=== PATIENT | male | born 1965 | race African-American/Black ===

== ENCOUNTER 2021-11-27 06:43 | Observation (INO) | payer OTHER, SELFPAY ==
[2021-11-27] VITALS (38 sets, daily range): BP systolic 119–167; BP diastolic 78–101; PULSE 52–107; RESP 11–22; TEMP 36.1–36.9; O2SAT 94–100; BMI 29.5
--- NOTE | ~2021-11-27 | XR_ITS ---
EXAMINATION: XR chest 1V portable DATE: 11/27/2021 07:52 INDICATION: Chest pain TECHNIQUE: frontal view of the chest was obtained. COMPARISON: None FINDINGS: The lungs are clear with no focal airspace opacities, pulmonary edema, pleural effusion or pneumothor ax. The cardiomediastinal silhouette is normal. Mild thoracic dextrocurvature. IMPRESSION: 1. No acute cardiopulmonary disease. Reviewed, dictated and finalized at location A.
--- NOTE | ~2021-11-27 | CT_ITS ---
EXAMINATION: CTA chest PE abdomen pel DATE: 11/27/2021 08:32 INDICATION: Chest pain, left side. Shortness of breath. TECHNIQUE: Computed tomography angiography (CTA) of the chest was performed with 100 mL Omnipaque-350 intravenous contrast timed to evaluate the pulmonary arteries. Coronal maximum intensity projection 3D-reconstructions were created by the technologist. Automated exposure control and iterative reconst ruction technique were employed. Exam dose: 1146.21 mGy-cm total exam DLP. COMPARISON: 11/27/2021 portable AP chest FINDINGS: There is diagnostic contrast enhancement of the pulmonary arteries and no evidence of pulmo nary embolism. The ascending aorta measures up to 3.9 cm diameter, the mid aortic arch and descending thoracic aorta approximately 3 cm diameter . No pulmonary infiltrate or consolidation or pulmonary mass lesion. Borderline heart size. No pericardial or pleural effusion. Included skeletal structures are unremarkable. IMPRESSION: No evidence of pulmonary embolus Borderline thoracic aortic diameter Borderline heart size Reviewed, dictated and finalized at Location [facility]. Reviewed, dictated and finalized at location B.
--- NOTE | 2021-11-27 06:45 | ECG_ITS ---
Measurements Intervals [place] Rate: 76 P: 23 [place]: 119 QRS: 36 QRSD: 86 T: -59 QT: 331 QTc: 374 Interpretive Statements SINUS RHYTHM FREQUENT ATRIAL PREMATURE COMPLEXES BORDERLINE T WAVE ABNORMALITY- INF/LAT LEADS BASELINE ARTIFACT- I, II, III, AVF, V4-V6 ABNORMAL ECG Electronically Signed On 11-27-2021 7:01:46 CDT by Mark Carlson D.O.
[2021-11-27] MEDS: ASPIRIN 81 MG CHEWABLE TABLET 324 MG PO (06:53)
[2021-11-27] MEDS: NITROGLYCERIN SL 0.4 MG TABLET SUBLINGUAL ×2 (06:55→07:00)
--- NOTE | 2021-11-27 06:55 | PC.NURSE ---
0655: 0.4 SL nitro given. 02/08 pain
[2021-11-27 06:56] LABS: Glucose Point of Care 292 mg/dl (65-105)
--- NOTE | 2021-11-27 06:58 | ECG_ITS ---
Measurements Intervals [place] Rate: 85 P: 26 [place]: 129 QRS: 31 QRSD: 84 T: -46 QT: 337 QTc: 402 Interpretive Statements SINUS RHYTHM LEFT VENTRICULAR HYPERTROPHY AND ST-T CHANGE ST-T WAVE ABNORMALITY IN INFERIOR LEADS- CONSIDER ISCHEMIA BASELINE ARTIFACT- III, AVF ABNORMAL ECG Electronically Signed On 11-27-2021 8:04:16 CDT by Mark Carlson D.O.
--- NOTE | 2021-11-27 07:04 | PC.NURSE ---
0700: 0.4 SL nitro given 10/10 pain
[2021-11-27 07:06] LABS: Basophils Percent Auto 0.2 % (0.2-1.2); Eosinophils Absolute Auto 0.2 K/mm3 (0-0.3); Eosinophils Percent Auto 4.1 % (0-4.4); Hematocrit 43.2 % (42.0-52.0); Immature Granulocyte Absolute 0.01 K/mm3 (0.00-0.031); Immature Granulocyte Percent A 0.2 % (0-0.5); Lymphocytes Percent Auto 25.8 % (18.3-44.2); Mean Corpuscular HGB Conc 32.4 g/dl (32-36); Mean Corpuscular Hemoglobin 27.6 pg (26-34); Mean Corpuscular Volume 85.2 fl (80-100); Mean Platelet Volume 11.5 fl (7.4-10.4); Monocytes Absolute Auto 0.6 K/mm3 (0.1-0.6); Monocytes Percent Auto 11.8 % (2.6-8.5); Neutrophils Absolute Auto 2.7 K/mm3 (1.3-6.7); Neutrophils Percent Auto 57.9 % (45.5-73.1); Platelet Count Result 165 k/mm3 (150-375); Red Blood Count 5.07 M/mm3 (4.6-6.20); Red Cell Distribution Width 14.4 % (11.5-14.5); White Blood Count 4.7 K/mm3 (4.5-10.0)
[2021-11-27] MEDS: MORPHINE SULFATE (*CRX) 4 MG/ML INJ IV PUSH (07:11)
--- NOTE | 2021-11-27 07:14 | ED.CHESTPAIN ---
HPI - Chest Pain General Chief Complaint: Chest Pain Stated Complaint: chest pain Time Seen by Provider: 11/27/21 07:01 Source: RN notes reviewed History of Present Illness HPI narrative: Patient presents emergency department from work for chest pain. Patient states symptoms began prior to arrival states he was seen his desk at work when he began to get left-sided chest pain pain is described as a heaviness with radiation into the left arm. He denies any fevers or chills does note some mild shortness of breath with symptoms as well as some upper abdominal pain denies any nausea vomiting or diarrhea. Patient states he does have a history of cardiomyopathy as well as hypertension high cholesterol diabetes. No previous history of coronary artery disease Related Data Home Medications Medication Instructions Recorded Confirmed acetaminophen 300 mg-codeine 30 mg tablet 11/27/21 tablet clobetasol 0.05 % topical ointment topical 11/27/21 diphenhydramine HCl 25 mg capsule mg 11/27/21 (Diphenhist) famotidine 40 mg tablet mg 11/27/21 gabapentin 400 mg capsule mg 11/27/21 hydrocodone 7.5 mg-acetaminophen tablet 11/27/21 325 mg tablet hydroxyzine HCl 25 mg tablet mg 11/27/21 insulin glargine 100 unit/mL (3 unit subcut 11/27/21 mL) subcutaneous pen (Lantus Solostar U-100 Insulin) insulin lispro 100 unit/mL 1 sliding scale dose subcut 11/27/21 subcutaneous cartridge USEASDIRECTD ketoconazole 2 % topical cream applic topical 11/27/21 lisinopril 20 mg tablet mg 11/27/21 loratadine 10 mg tablet mg 11/27/21 metformin 500 mg tablet mg 11/27/21 pen needle, diabetic 32 gauge x 11/27/21 (BD Katarzyna 2nd Gen Pen Needle) terbinafine HCl 250 mg tablet mg 11/27/21 Allergies Allergy/AdvReac Type Severity Reaction Status Date / Time No Known Allergies Allergy Verified 11/27/21 07:03 Review of Systems Review of Systems: Gen.: Denies fevers or chills ENT: Denies congestion Respiratory: D reports shortness of breath CV: Reports chest pain GI: Reports upper abdominal pain denies nausea vomiting diarrhea Musculoskeletal: Denies back pain or muscle pain Neuro: Denies numbness, tingling, weakness or focal weakness Skin: Denies rash Except as documented, all other systems reviewed and negative [facility] Past Medical History Medical History (Updated 11/27/21 @ 13:56 by Joel Cain DO) Diabetes mellitus Hypercholesterolemia Hypertension Social History Social History (Updated 11/27/21 @ 07:16 by Joel Cain DO) Smoking status: Never smoker Exam Narrative: APPEARANCE: No acute distress, nontoxic, resting in bed EYES: EOMI HEENT: Normocephalic, atraumatic, OMM RESPIRATORY: No respiratory distress Clear to auscultation bilaterally with no rhonchi wheezing or rales. CARDIOVASCULAR: Regular rate and rhythm without murmurs rubs or gallops. ABDOMINAL: Soft, nondistended tender palpation epigastric and upper quadrant no tenderness left upper quadrant, right lower quadrant left lower lower quadrant no rebound or guarding MUSCULOSKELETAl: Moves all extremities. No clubbing, cyanosis or edema. NEURO: Awake and alert. Following commands, speech normal, no focal deficits SKIN:: Warm, dry. No rashes lesions or abrasions PSYCHIATRIC: Normal affect/mood, Course Course Emergency Course: Patient still large amount of pain pain in the left chest as well as left upper abdomen on palpation pain unchanged with nitroglycerin morphine and GI cocktail 0905: Discussed with Dr. Lyon with EKG sent to Dr. Lyon this time he agrees no acute signs of ST elevation and does not feel patient needs emergent Contracting Specialist Patient states pain is improved with Dilaudid Discussed with Dr. Robin presentation work-up agrees with admission Discussed with SARIAH Yang for Dr. Lyon agrees with consult Discussed with patient and family results of workup and diagnosis. Discussed need for admission. Patient and family
[2021-11-27 07:18] LABS: INR 1.1; Prothrombin Time 13.7 Seconds (11.1-14.7)
[2021-11-27 07:19] LABS: Partial Thromboplastin Time 28.3 SECONDS (22.3-36.8)
--- NOTE | 2021-11-27 07:28 | ECG_ITS ---
Measurements Intervals [place] Rate: 71 P: 27 [place]: 131 QRS: 30 QRSD: 79 T: -52 QT: 349 QTc: 380 Interpretive Statements SINUS RHYTHM ATRIAL PREMATURE COMPLEXES LEFT VENTRICULAR HYPERTROPHY AND ST-T CHANGE ST-T WAVE ABNORMALITY IN INFERIOR LEADS- CONSIDER ISCHEMIA ABNORMAL ECG Electronically Signed On 11-27-2021 8:04:48 CDT by Mark Carlson D.O.
[2021-11-27 07:29] LABS: Troponin I < 0.012 ng/mL (0.000-0.034)
[2021-11-27 07:59] LABS: Albumin Level 4.4 g/dL (3.5-5.1); Alkaline Phosphatase 73 U/L (38-126); Anion Gap 11 mmol/L (8-16); Aspartate Amino Transferase 34 U/L (17-59); Bilirubin,Total 0.5 mg/dL (0.2-1.3); Blood Urea Nitrogen 12 mg/dL (9-20); Calcium 9.3 mg/dL (8.4-10.2); Carbon Dioxide 21 mmol/L (22-30); Chloride 105 mmol/L (98-107); Estimated CRCL calculation 79 ml/min; Estimated Glomerular Filt Rate > 60; Glucose 243 mg/dL (65-110); Lipase 87 U/L (23-300); Potassium 3.8 mmol/L (3.4-5.0); Sodium 137 mmol/L (137-145)
[2021-11-27 08:30] LABS: Alanine Aminotransferase 45 U/L (6-50)
--- NOTE | 2021-11-27 08:48 | ECG_ITS ---
Measurements Intervals [place] Rate: 67 P: 43 [place]: 144 QRS: 30 QRSD: 77 T: -29 QT: 343 QTc: 363 Interpretive Statements SINUS RHYTHM ST ELEVATION IN ANTERIOR LEADS, PROBABLY EARLY REPOLARIZATION BORDERLINE ST-T WAVE ABNORMALITY- INFERIOR LEADS BASELINE ARTIFACT- I, III, AVL BORDERLINE ECG Electronically Signed On 11-27-2021 9:44:51 CDT by Mark Carlson D.O.
[2021-11-27] MEDS: HYDROmorphone HCL INJ (*CRX) 1 MG/ML SYR IV PUSH (09:07)
--- NOTE | 2021-11-27 09:08 | PC.NURSE ---
Patient attempting to climb out of bed due to chest pain. This RN and Dr. Cain able to redirect patient back into bed. IV Dilaudid ordered for patient.
[2021-11-27 09:55] LABS: Lactic Acid Reflex 2.5 mmol/L (0.7-2.0)
[2021-11-27 10:08] LABS: Troponin I 0.013 ng/mL (0.000-0.034)
[2021-11-27] MEDS: SODIUM CHLORIDE 0.9% IV 1,000 ML 999 ML IV CONT (10:23)
[2021-11-27 10:59] LABS: SARS-CoV-2 RNA PCR Negative
[2021-11-27] MEDS: HYDROmorphone HCL INJ (*CRX) 1 MG/ML SYR 0.5 MG IV PUSH (12:26)
[2021-11-27 12:31] LABS: Reflex Lactic Acid Yes or No Add Lactic
[2021-11-27] MEDS: PANTOPRAZOLE SODIUM IV 40 MG VIAL IV PUSH (12:36)
[2021-11-27] MEDS: SODIUM CHLORIDE 0.9% IV 1,000 ML 125 ML IV CONT ×2 (12:36→20:46)
[2021-11-27 13:17] LABS: Troponin I < 0.012 ng/mL (0.000-0.034)
[2021-11-27] MEDS: KETOROLAC 30 MG/ML VIAL (*BKC) IV PUSH (13:34)
[2021-11-27 13:35] LABS: Lactic Acid 1.1 mmol/L (0.7-2.0)
--- NOTE | 2021-11-27 13:37 | PM.CNCAR ---
Assessment and Plan Assessment and plan (1) Chest pain at rest: Code(s): R07.9 - Chest pain, unspecified Status: Acute Plan This is a 56-year-old gentleman presenting to the emergency room earlier today with some chest pain that seems to have a pleuritic component to it as far as I can not tell from his history. He does not report any prior history of cardiac problems. He has not been feeling well since infection of a carpal tunnel surgical site last June. Following the this event he was also found to be diabetic. The patient and his significant other seem to have the concept that this incident caused him to become diabetic which does not seem to be the case in my opinion. In any event there is no abducted evidence of an acute coronary syndrome he has some very mild nonspecific ECG changes but nothing that looks like a current of injury and he has had 2 sets of negative troponins as of now. I did discuss the situation with the ER staff were going to proceed give him a dose of Toradol at this time. Will follow with you while he is in the hospital but this time it is my judgment that he does not require emergent coronary angiogram which was the reason for asking me to come see him in the emergency room Kevyn Lyon MD [facility] History of Present Illness History of Present Illness Consult date/time: 11/27/21 13:37 Consult reason: chest pain Reason For Visit: L sided chest pain/L abd pain Narrative: This is a 56-year-old man that I am seeing in the emergency room at the request of the ED staff because of chest pain. He is known to me prior to this encounter. The patient is not known to have any cardiac problems prior to this from what he is telling me. He indicates that he came to the emergency room murmur very early this morning with some chest pain that awakened him from sleep. He describes a initially sharp then sometimes pressure-like pain that occurs in the left precordium sometimes in the center substernal region. The discomfort waxes and wanes but has been constant since its onset about 7:00 a.m. this morning. He is not having any associated nausea vomiting or diaphoresis there is no radiation of pain into the neck interscapular region or any other location. He was concerned about his health so he came to the emergency room for evaluation. In the emergency department he has had 4 electrocardiograms done since arrival. This tracing shows sinus rhythm with some nonspecific T-wave abnormalities. He has had 2 troponin levels sampled since he has been here which are negative. CT of the chest has not shown any evidence of pulmonary embolism or of aortic pathology. The patient states that he has been feeling poorly since complications following a carpal tunnel operation which occurred in the early part of your at a [facility]. The patient and his significant other who is in the room indicate that there were infectious complications following this and they thought there was some infectious problem that were related to his heart. It specifically do not remember the term endocarditis when I mention this possibility. I did look in the [facility] electronic records in my chart and there is nothing in the discharge records from [facility] at indicate any concern regarding his cardiac status. He apparently had a carpal tunnel operation in the had a wound infection and was hospitalized for initiation of antibiotics and then was on antibiotics for a number of weeks after that. When he is in his usual state of health he is not reporting any exertional chest pain symptoms he does not experience orthopnea or PND. He states that he was having some skin lesions with some blistering on the hands in his left foot that he has seen several physicians about and have not had any specific diagnosis made. When I came in the room to see the patient he was sleeping in bed upon awakening he still states he is having moderate chest pain that get
--- NOTE | 2021-11-27 14:15 | PM.IMHP ---
H&P: HPI History of Present Illness Date/Time: 11/27/21 14:15 <Ashley Puente PA-C - Last Filed: 11/27/21 23:44> Chief Complaint: Chest pain. <Ashley Puente PA-C - Last Filed: 11/27/21 23:44> Narrative: This is a pleasant 56-year-old male with insulin-dependent diabetes, peripheral neuropathy, and hypertension who presented to the emergency department via private vehicle for evaluation of chest pain. He got up at 04:30 as per usual and took his fasting glucose which was reportedly 255. Not long thereafter he started to feel as though his glucose was dropping and so he ate a slice of bread and when he recheck the glucose he was actually higher than what it was before at about 360. Around the same time he developed a severe squeezing pain in the left anterior chest associated with feelings of racing heart. The pain was so severe that it took his breath away and he also reports feeling nauseated and diaphoretic with the onset of those symptoms. His symptoms have continued and thus he came in today for evaluation. He reports constant pain since the outset however it waxes and wanes in intensity. He denies aggravating factors and while he has some mild tenderness to palpation over the left chest wall he states that this pain is completely different than the pain he has been experiencing this morning. It is perhaps a little worse with deep inspiration but not significantly so. Aspirin, nitroglycerin, morphine, Toradol, and GI cocktail did not help much and the best relief he got was from dilaudid. Thus far he has had 2 negative troponins and his EKG was reviewed by Dr. Lyon who does not think there is any evidence of acute injury. Currently the patient is resting comfortably but he continues to have intermittent pain. He denies syncope, presyncope, current palpitations, orthopnea, paroxysmal nocturnal dyspnea, and lower extremity edema though he has had some mild swelling of his legs within the last couple of weeks. He also denies epigastric and abdominal pain, bloating, belching, and indigestion symptoms. <Ashley Puente PA-C - Last Filed: 11/27/21 23:44> Review of Systems Review of Systems: Twelve systems were reviewed. He was recently diagnosed with diabetes and he has neuropathy, mainly in his left foot and hands. He was hospitalized at [facility] in June following carpal tunnel surgery in which he developed a pretty significant infection. He has changed his diet and feels as though he is getting his glucose under control and he was apprised by today's numbers. He has no known history of coronary artery disease but thinks he may have been diagnosed with a cardiomyopathy during his stay at [facility]. He denies concerns for sleep apnea. No melena or hematochezia. No history of venous thromboembolism. He has not done any strenuous lifting or new activities in which he could injure himself. Except as documented, all other systems were reviewed and are negative. <Ashley Puente PA-C - Last Filed: 11/27/21 23:44> [facility] Past Medical History Medical History: Medical History (Updated 11/27/21 @ 14:08 by sAhley Puente PA-C) Dyslipidemia Hypertension Insulin dependent diabetes mellitus <Ashley Puente PA-C - Last Filed: 11/27/21 23:44> Surgical History Surgical History: Surgical History (Updated 11/27/21 @ 14:06 by Ashley Puente PA-C) History of carpal tunnel release <Ashley Puente PA-C - Last Filed: 11/27/21 23:44> Family History Family History: Family History Mother Lymphoma Father Acute myocardial infarction Sibling Diabetes mellitus <Ashley Puente PA-C - Last Filed: 11/27/21 23:44> Social History Social History: Social History (Updated 11/27/21 @ 23:39 by Ashley Puente PA-C) Social History: Surrogate medical decision maker: miranda Murphy
--- NOTE | 2021-11-27 14:32 | PC.NURSE ---
Admit to 207 from ED pt is A&Ox4 C/O squeezung in chest with syncopal episode x2 today. NS at 125ml/hr, skin is warm and dry. 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
[2021-11-27 16:55] LABS: Glucose Point of Care 114 mg/dl (65-105)
[2021-11-27 20:00] LABS: Glucose Point of Care 158 mg/dl (65-105)
[2021-11-27] MEDS: INSULIN GLARGINE (*BKC) 100 UNITS/ML 20 UNITS SUB-Q (20:57)
[2021-11-28] VITALS (9 sets, daily range): BP systolic 127–178; BP diastolic 69–99; PULSE 57–86; RESP 16–24; TEMP 36.3–36.7; O2SAT 96–100
--- NOTE | 2021-11-28 | ECHO_ITS ---
Patient Info Name: Renato Dean Age: 56 years : 1965 Gender: Male Ht: 67 in Wt: 190 lbs BSA: 2.04 m2 HR: 82 bpm BP: 178 / 82 mmHg Heart Rhythm: Sinus Rhythm Technical Quality: Good Exam Date: 11/28/2021 12:55 PM Exam Location: [facility] Pulmonary Exam Room: [facility] Patient Status: Inpatient Admit Date: 11/27/2021 Staff Ordering Physician: Leena Robin MD Manager Epic: Anjali Sanchez RDCS Attending Provider: Leena Robin MD Referring Physician: Sharda JERONIMO; Exam Type: CA echo doppler color flow Study Info Indications - PLEURITIC CHEST PAIN Complete two-dimensional, color flow and Doppler transthoracic echocardiogram is performed. Summary 1. Complete two-dimensional, color flow and Doppler transthoracic echocardiogram is performed. 2. Normal left ventricular size with moderate concentric hypertrophy. Good systolic function of all segments with ejection fraction of 65-70%. Global longitudinal strain was also normal at -20%. Grade 2 diastolic dysfunction is present. 3. Left atrial chamber dimension is mildly enlarged. 4. There is mild tricuspid valve regurgitation. 5. Mild pulmonary hypertension, estimated pulmonary arterial systolic pressure is 40 mmHg. 6. There is no pericardial effusion. 7. Normal sinus rhythm. Left Ventricle Left ventricular chamber dimension is normal. Left ventricular systolic function is normal, estimated at 65-70%. There is moderately increased left ventricular wall thickness. Left ventricular septal wall motion is normal. The left ventricular diastolic function is grade II diastolic dysfunction. Global longitudinal strain is normal at -20 %. Right Ventricle Right ventricular chamber dimension is normal. Right ventricular systolic function is normal. Left Atria Left atrial chamber dimension is mildly enlarged. Right Atria Right atrial chamber dimension is normal. Aortic Valve The aortic valve is trileaflet. There is no aortic valve sclerosis. There is no aortic valve stenosis. There is no aortic valve regurgitation. Pulmonic Valve The pulmonic valve is normal. There is no pulmonic valve stenosis. There is trace pulmonic regurgitation. Mitral Valve The mitral valve has normal leaflets. There is no mitral valve stenosis. There is trace mitral valve regurgitation. Tricuspid Valve The tricuspid valve leaflets are normal. There is no significant tricuspid valve stenosis. There is mild tricuspid valve regurgitation. Mild pulmonary hypertension, estimated pulmonary arterial systolic pressure is 40 mmHg. Pericardium/Pleural The pericardium appears normal. There is no pericardial effusion. Inferior Vena Cava Normal inferior vena cava with >50% collapse upon inspiration consistent with Empty right atrial pressure, 10 mmHg. Aorta The aortic root size at the sinus of Valsalva is normal. The prox ascending aorta size is normal. Left Ventricular Outflow Tract Name Value Normal LVOT 2D LVOT Diameter 2.1 cm LVOT Doppler LVOT Peak Gradient 7 mmHg LVOT Mean Gradient 3 mmHg
[2021-11-28] MEDS: TRIAMCINOLONE ACET 0.1% CREAM 15 GM TUBE 1 APPLIC TOPICAL ×2 (02:49→17:14)
[2021-11-28] MEDS: HYDROcodone/acetaminophen (*CRX) 5-325 MG TABLET 1 TAB PO (02:52)
[2021-11-28 03:22] LABS: Glucose Point of Care 151 mg/dl (65-105)
[2021-11-28] MEDS: HYDROmorphone HCL INJ (*CRX) 1 MG/ML SYR IV PUSH ×2 (04:03→09:57)
[2021-11-28 04:49] LABS: Basophils Percent Auto 0.5 % (0.2-1.2); Eosinophils Absolute Auto 0.2 K/mm3 (0-0.3); Eosinophils Percent Auto 5.2 % (0-4.4); Hematocrit 40.6 % (42.0-52.0); Hemoglobin 12.8 g/dL (14.0-18.0); Immature Granulocyte Absolute 0.01 K/mm3 (0.00-0.031); Immature Granulocyte Percent A 0.2 % (0-0.5); Lymphocytes Absolute Auto 1.81 K/mm3 (0.9-3.2); Lymphocytes Percent Auto 42.4 % (18.3-44.2); Mean Corpuscular HGB Conc 31.5 g/dl (32-36); Mean Corpuscular Hemoglobin 27.4 pg (26-34); Mean Corpuscular Volume 86.9 fl (80-100); Mean Platelet Volume 11.6 fl (7.4-10.4); Monocytes Absolute Auto 0.5 K/mm3 (0.1-0.6); Monocytes Percent Auto 11.7 % (2.6-8.5); Neutrophils Absolute Auto 1.7 K/mm3 (1.3-6.7); Platelet Count Result 151 k/mm3 (150-375); Red Blood Count 4.67 M/mm3 (4.6-6.20); Red Cell Distribution Width 14.6 % (11.5-14.5); White Blood Count 4.3 K/mm3 (4.5-10.0)
[2021-11-28 04:56] LABS: Alanine Aminotransferase 41 U/L (6-50); Albumin Level 3.4 g/dL (3.5-5.1); Alkaline Phosphatase 58 U/L (38-126); Anion Gap 5 mmol/L (8-16); Aspartate Amino Transferase 30 U/L (17-59); Bilirubin,Total 0.5 mg/dL (0.2-1.3); Blood Urea Nitrogen 12 mg/dL (9-20); Calcium 8.8 mg/dL (8.4-10.2); Carbon Dioxide 26 mmol/L (22-30); Chloride 108 mmol/L (98-107); Estimated CRCL calculation 70 ml/min; Estimated Glomerular Filt Rate > 60; Glucose 105 mg/dL (65-110); Sodium 139 mmol/L (137-145)
[2021-11-28 07:43] LABS: Glucose Point of Care 110 mg/dl (65-105)
[2021-11-28] MEDS: ENOXAPARIN 40 MG/0.4 ML SYRINGE SUB-Q (08:21)
[2021-11-28] MEDS: FAMOTIDINE 20 MG TABLET 40 MG PO (08:23)
[2021-11-28] MEDS: lisinopriL 20 MG TABLET PO (08:23)
[2021-11-28] MEDS: GABAPENTIN 400 MG CAPSULE PO ×3 (08:24→17:11)
--- NOTE | 2021-11-28 08:49 | PM.PNCARD ---
Progress Note: A&P Assessment and Plan (1) Chest pain: Code(s): R07.9 - Chest pain, unspecified Status: Acute Assessment and Plan: Ongoing left-sided pleuritic chest pain. No evidence of ACS, AK, PE, aortic dissection. Unlikely to be coronary spasm as it is ongoing, and there is no bump in troponins. Likely diagnosis is pleurisy or costochondritis. Possible pericarditis, but nothing on the EKG consistent with pericarditis and no pericardial friction rub. Echocardiogram pending Recommend Toradol and nonsteroidals, symptomatic treatment. Reassured pt; does not appear to be anything very bad like AK, etc. Probably discharge later today. (2) Hypertension: Code(s): I10 - Essential (primary) hypertension Status: Acute Assessment and Plan: History of hypertension. Blood pressure running high, probably related to pain. Subjective Date/time seen: 11/28/21 08:49 Interval history: Follow-up for chest pain with a pleuritic component. Troponins negative x3. Was given some Toradol in the emergency room. Date of service 11/28/2021: Uncomfortable all through the night with left-sided chest discomfort hydrocodone does not help but Dilaudid does provide some transient relief. Pleuritic, worse lying down, makes him feel short of breath. Tender and sore. Feels like he has myalgias. Review of Systems Constitutional: Constitutional: Denies fever(s) Comments: States he broke out in a sweat yesterday morning prior to admission. Cardiovascular: Cardiovascular: Reports chest pain, Denies pedal edema and Denies lightheadedness Respiratory: Respiratory: Denies chest congestion and Reports dyspnea Gastrointestinal: Gastrointestinal: Denies abdominal pain and Denies hematochezia Musculoskeletal: Musculoskeletal: Reports myalgias Integumentary/Breasts: Skin/Breast: Reports system reviewed and no additional complaints, except as docu Neurologic: Reports system reviewed and no additional complaints, except as documented, Denies behavioral changes and Denies confusion Psychiatric: Psychiatric: Denies behavioral changes and Denies confusion Exam Const: General: cooperative, healthy appearing and uncomfortable; No confusion Orientation/consciousness: oriented to person, patient oriented x3 and No confusion Chest: Other: Has some tenderness to touch of the left lower chest. Resp: Effort & Inspection: normal respiratory effort Auscultation: clear to auscultation bilaterally Other: No pleural rub heard Cardio: Rate: regular rate Rhythm: regular rhythm Heart sounds: no murmurs and no rubs GI: Inspection: normal to inspection GI Palp: No abdominal tenderness Neuro: General: oriented to person, patient oriented x3 and No confusion Extrem: Right lower extremity: no edema Left lower extremity: no edema Psych: Appearance: grossly normal Mental Status: mental status grossly normal Objective Data Vital Signs Vital Signs: Vital Signs - 24 hr 11/27/21 09:39 11/27/21 09:37 11/27/21 10:29 Temperature 98.4 F Pulse Rate 59 L 55 L Respiratory Rate 22 H 19 Blood Pressure 145/93 H 119/80 Pulse Oximetry 100 97 Oxygen Delivery 11/27/21 14:12 11/27/21 09:00 11/27/21 09:15 Temperature Pulse Rate 71 107 H 83 Respiratory Rate 18 20 11 L Blood Pressure 136/78 Pulse Oximetry 100 Oxygen Delivery 11/27/21 10:15 11/27/21 10:30 11/27/21 10:45 Temperature Pulse Rate 71 54 L 56 L Respiratory Rate 18 17 14 Blood Pressure Pulse Oximetry 100 97 Oxygen Delivery 11/27/21 11:00 11/27/21 11:16 11/27/21 11:30 Temperature Pulse Rate 55 L 56 L 55 L Respiratory Rate 16 20 19 Blood Pressure Pulse Oximetry 97 97 Oxygen Delivery 11/27/21 11:32 11/27
[2021-11-28 11:31] LABS: Glucose Point of Care 147 mg/dl (65-105)
[2021-11-28] MEDS: IBUPROFEN 600 MG TABLET PO ×2 (11:57→17:11)
[2021-11-28] MEDS: KETOROLAC 30 MG/ML VIAL (*BKC) IV PUSH (11:57)
[2021-11-28 17:11] LABS: Glucose Point of Care 173 mg/dl (65-105)
--- NOTE | 2021-11-28 17:33 | PM.DS ---
DS: Admitting Diagnosis Discharge Date 11/28/21 Admitting Diagnosis Chest Pain DS: Discharge Diagnosis Discharge Diagnosis (1) Chest pain: Code(s): R07.9 - Chest pain, unspecified Status: Acute Assessment and Plan: Negative serial troponin. Echo with EF 65-70% with concentric LVH, grade II diastlic dysfunction and mild pulmonary hypertension. No pericardial effusion. Patient reporting relief of chest pain with toradol overnight saying that is the only thing he has been given that works. Discussed with patient that NSAIDs are the treatment for his pleuritic chest pain and patient verbalized understanding. Cardiology was consulted and agrees with treatment with NSAIDs. -Ibuprofen 600 mg q8h as needed -Patient advised to follow up with primary care physician within a week of discharge (2) Insulin dependent diabetes mellitus: Status: Acute Assessment and Plan: Hemoglobin a1c 9.0. Uncontrolled. Patient would likely benefit from starting dapagliflozin outpatient. Will resume home medications for discharge. Follow up outpatient with primary care physician. (3) Hypertension: Code(s): I10 - Essential (primary) hypertension Status: Acute Assessment and Plan: Patient takes lisinopril 30 mg po daily at home. This may need to be increased by the primary care physician or add HCTZ. Patient will need to follow outpatient with primary care physician. (4) Dyslipidemia: Code(s): E78.5 - Hyperlipidemia, unspecified Status: Acute Assessment and Plan: Patient needs high intensity statin due to diabetes. Will order atorvastatin for discharge. DS: Summary Hospital Course Reason for hospitalization: Chest pain Hospital Course: 56M with a past medical history of work accident, diabetes, hypertension who presented to the emergency department with chest pain. Troponin were negative. Echo with EF 65-70% with concentric LVH, grade II diastolic dysfunction and mild pulmonary hypertension. No pericardial effusion. Cardiology was consulted and did not thnk this was ACS. They thought it was likely musculoskeletal or pericarditisl Patient symptoms improved with toradol and had adequate pain control with ibuprofen. Patient was informed he would only be given tylenol for discharge. Patient expressed understanding. Patient was advised to follow up with his primary care physiian within a week from discharge. Time Spent with Patient Time attestation: Total time spent providing and/or coordinating discharge services: Exam Narrative: GENERAL: NAD, cooperative HEENT: Normocephalic, atraumatic, anicteric NECK: Supple CV: Normal S1, S2, RRR, No MRG - no friction rub EXTREMITIES: Warm and well perfused, no clubbing, cyanosis, or edema. SKIN: warm, dry and intact. Dark spots on the soles of the left foot NEURO: CN 2-12 grossly intact. DS: Data Data Completed and Pending Labs on day of discharge: Labs from last 24 hours 11/28/21 11/28/21 11/28/21 17:07 11:25 07:40 WBC RBC Hgb Hct MCV MCH MCHC RDW Plt Count MPV Immature Gran % (Auto) Neut % (Auto) Lymph % (Auto) [place] % (Auto) Eos % (Auto) Baso % (Auto) Lymph # (Auto) [place] # (Auto) Eos # (Auto) Baso # (Auto) Abs Immat Gran (auto) Absolute Neuts (auto) Absolute Nucleated RBC Nucleated RBC % Sodium Potassium Chloride Carbon Dioxide Anion Gap BUN Creatinine Estim Creat Clear Calc Estimated GFR Glucose POC Capillary Glucose 173 H 147 H 110 H Hemoglobin A1c Calcium Total Bilirubin AST ALT Alkaline Phosphatase Total Protein Albumin 11/28/21 11/28/21 11/28/21 04:26 04:26 04:26 WBC 4.3 L RBC 4.67 Hgb 12.8 L Hct 40.6 L MCV 86.9 MCH 27.4 MCHC 31.5 L RDW 14.6 H Plt Count 151 MPV 11.6 H Immature
--- NOTE | 2021-11-28 18:43 | PC.NURSE ---
Discharge forms explained and given to pt, PIVx2 taken out. Pt left off unit with and all personal belongings. Pt refused W/C.
== END 2021-11-28 18:28 | disposition home or self-care (01) ==
LOC: ANHED 07:55 → ANHIMU 13:06
PROVIDERS: Emergency Medicine; Physician Assistant; Admitting Provider Family Medicine; Emergency Provider Emergency Medicine; Visit Provider Family Medicine
DX: R07.9 Chest pain, unspecified (principal); R10.9 Unspecified abdominal pain; I10 Essential (primary) hypertension; I42.9 Cardiomyopathy, unspecified; E78.5 Hyperlipidemia, unspecified; I36.1 Nonrheumatic tricuspid (valve) insufficiency; I27.20 Pulmonary hypertension, unspecified; E11.42 Type 2 diabetes mellitus with diabetic polyneuropathy; Z79.4 Long term (current) use of insulin; Z79.84 Long term (current) use of oral hypoglycemic drugs; Z79.891 Long term (current) use of opiate analgesic; Z20.822 Contact with and (suspected) exposure to COVID-19
CPT/HCPCS: 36415; 71045; 71275; 74177; 80053; 82948; 83036; 83605; 83690; 84484; 85025; 85610; 85730; 93005; 93306; 96361; 96372; 96374; 96375; 96376; 99285; A9270; C9113; C9803; G0378; G0379; J1170; J1650; J1815; J1885; J2270; J7030; Q9967; U0003; U0005